=== PATIENT | male | born 1940 | race Caucasian/White ===

== ENCOUNTER 2017-06-11 15:03 | Observation (INO) | payer OTHER ==
--- NOTE | 2017-06-11 15:41 | PDOC ---
History of Present Illness - General History Source: Patient Exam Limitations: No Limitations - History of Present Illness Initial Comments: 06/11/17 16:46 The patient is a 76 year old male with past medical history of atrial fibrillation (on Xarelto) s/p pacemaker, history of [place] (as per angiogram), and hiatal hernia who presents to the ED with complaints of hematuria that began last night. The patient denies any associated pain, dysuria, frequency or urgency. The patient reports history of kidney stones but does not relate his symptoms to the pain he felt with his kidney stones. Additionally, the patient has noticed his abdomen become increasingly distended over the course of 2 weeks , with noted constipation for the past month and recent weight loss over the course of one month. The patient reports having routine colonoscopies which have shown no acute findings in the past.He reports having a persistent dry cough for the past 4 months. Patient states hes seen multiple doctors and had a barium swallow test which was normal. He denies any recent illness, fever, chills, nausea, vomiting, diarrhea, melena, hematochezia, chest pain, or shortness of breath. Allergies: Nexium sensitivity Social: Denies any drug, alcohol, or tobacco use Surgery: Denies any abdominal surgery Urologist: Dr. Aldair Ramirez <Seajl Delcid - Last Filed: 06/11/17 19:39> <Soren Ruiz - Last Filed: 06/11/17 19:53> - General Chief Complaint: Hematuria Stated Complaint: BLOOD IN URINE Time Seen by Provider: 06/11/17 15:08 Past History <Sejal Delcid - Last Filed: 06/11/17 19:39> - Past Medical History Anemia: No Asthma: No Cancer: No Cardiac Disorders: Yes (A-FIB, PT WAS INFORMED HE HAD ," HEART DAMAGE") CVA: No COPD: No CHF: No Dementia: No Diabetes: No GI Disorders: No (Colonoscopy in 11/2011 revealed benign polyps, diverticulosis. S/p polypect) Disorders: No HTN: No (PT DENIES) Hypercholesterolemia: No Kidney Stones: Yes Liver Disease: No Seizures: No Thyroid Disease: Yes - Surgical History Abdominal Surgery: No Appendectomy: No Cardiac Surgery: No Cholecystectomy: No Lung Surgery: No Neurologic Surgery: No Orthopedic Surgery: No - Immunization History Immunization Up to Date: Yes - Suicide/Smoking/Psychosocial Hx Smoking Status: No Smoking History: Never smoked Have you smoked in the past 12 months: No Number of Cigarettes Smoked Daily: 0 Hx Alcohol Use: No Drug/Substance Use Hx: No Substance Use Type: None Hx Substance Use Treatment: No <Soren Ruiz - Last Filed: 06/11/17 19:53> - Past Medical History Allergies/Adverse Reactions: Allergies Allergy/AdvReac Type Severity Reaction Status Date / Time esomeprazole magnesium Allergy Verified 06/11/17 15:20 [From Nexium] Home Medications: Ambulatory Orders Cholecalciferol (Vitamin D3) [Vitamin D3] 2,000 unit PO DAILY 11/19/11 Metoprolol Succinate [Toprol XL -] 50 mg PO DAILY #0 tab.sr.24h 01/16/12 Aspirin [Ecotrin] 81 mg PO DAILY 12/26/15 Atorvastatin Ca [Lipitor] 10 mg PO HS 12/26/15 Rivaroxaban [Xarelto -] 20 mg PO HS 12/26/15 Loratadine [Claritin -] 10 mg PO DAILY 04/10/16 Acetaminophen [Tylenol .Regular Strength -] 650 mg PO Q6H PRN #0 tablet Levothyroxine [Synthroid -] 100 mcg PO DAILY 06/11/17 Valsartan [Diovan] 40 mg PO DAILY 06/11/17 Abd/GI Specific PMHX - Complaint Specific PMHX GERD: No GI Ulcer Disease: No <Soren Ruiz - Last Filed: 06/11/17 19:53> Review of Systems - Review of Systems Able to Perform ROS?: Yes Comments:: 06/11/17 16:47 CONSTITUTIONAL: Present: weight loss Absent: fever, chills, diaphoresis, generalized weakness, malaise, loss of appetite HEENT: Absent: rhinorrhea, nasal congestion, throat pain, throat swelling, difficulty swallowing, mouth swelling, ear pain, eye pain, visual Changes CARDIOVASCULAR: Absent: chest pain, syncope, palpitations, irregular heart rate, lightheadedness , peripheral edema RESPIRATORY: Present: cough Absent: shortness of breath, dyspnea with exertion, orthopnea, wheezing, stridor , hemoptysis GASTROINTESTINAL: Present: abdominal distention Absent: abdominal pain, nausea, vomiting, diarrhea, constipation, melena, hematochezia GENITOURINARY: Present: hematuria Absent: dysuria, frequency, urgency, hesitancy, flank pain, genital pain MUSCULOSKELETAL: Absent: myalgia, arthralgia, joint swelling SKIN: Absent: rash, itching, pallor HEMATOLOGIC/IMMUNOLOGIC: Absent: easy bleeding, easy bruising, lymphadenopathy, frequent infections ENDOCRINE: Absent: unexplained weight gain, unexplained weight loss, heat intolerance, cold intolerance NEUROLOGIC: Absent: headache, focal weakness or paresthesias, dizziness, unsteady gait, seizure, mental status changes, bladder or bowel incontinence PSYCHIATRIC: Absent: anxiety, depression, suicidal or homicidal ideation, hallucinations. <Sejal Delcid - Last Filed: 06/11/17 19:39> *Physical Exam - Vital Signs Last Vital Signs Temp Pulse Resp BP Pulse Ox 97.6 F 80 16 120/64 96 06/11/17 15:04 06/11/17 15:04 06/11/17 15:04 06/11/17 15:04 06/11/17 15:04 - Physical Exam Comments: 06/11/17 16:58 GENERAL: Well developed, well nourished. Awake and alert. No acute distress. HEENT: Normocephalic, atraumatic. PERRLA, EOMI. No conjunctival pallor. Sclera are non- icteric. Oropharynx is clear. NECK: Supple. Full ROM. No JVD. Carotid pulses 2+ and symmetric, without bruits. No thyromegaly. No lymphadenopathy. CARDIOVASCULAR: Regular rate and rhythm. No murmurs, rubs, or gallops. Distal pulses are 2+ and symmetric. PULMONARY: No evidence of respiratory distress. Lungs clear to auscultation bilaterally. No wheezing, rales or rhonchi. ABDOMINAL: Distended abdomen. Soft. Non-tender.No rebound or guarding. No organomegaly. Normoactive bowel sounds. MUSCULOSKELETAL Normal range of motion at all joints. No bony deformities or tenderness. No CVA tenderness. EXTREMITIES: No cyanosis. No clubbing. No edema. No calf tenderness. SKIN: Pale appearing. Warm and dry. Normal capillary refill. No rashes. NEUROLOGICAL: Alert, awake, appropriate. Cranial nerves 2-12 intact. No deficits to light touch and temperature in face, upper extremities and lower extremities. No motor deficits in the in face, upper extremities and lower extremities. Normoreflexic in the upper and lower extremities. Normal speech. Toes are down-going bilaterally. Gait is normal without ataxia. PSYCHIATRIC: Cooperative. Good eye contact. Appropriate mood and affect. <Sejal Delcid - Last Filed: 06/11/17 19:39> ED Treatment Course - LABORATORY CBC & Chemistry Diagram: 06/11/17 16:30 06/11/17 16:30 - ADDITIONAL ORDERS Additional order review: Laboratory Results 06/11/17 15:34 Urine Color Red Urine Appearance Bloody Urine pH 5.5 Ur Specific [place] >= 1.030 H Urine Protein 3+ H D Urine Glucose (UA) Negative Urine Ketones Negative Urine Blood 3+ H Urine Nitrite Negative Urine Bilirubin 1+ H Urine Urobilinogen 0.2 Ur Leukocyte Esterase Negative Urine RBC Many Urine WBC 10-15 Urine Bacteria Few - RADIOLOGY Radiograph Interpretation: 06/11/17 18:36 In comparison to a 2013 CT, study interval development of an approximately 26 x 22 x 8 cm 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 This finding appears to arise from the left capsule ventrality. There appears to be a small fluid componenet within this lesion which may represent subacute or chronic blood. Mild left hydronephrosis is noted secondary to extrinsic indentation from the mass lesion upon proximal ureter. Moderate fluid filled gastric distention possibly secondary to effacement/ compression of the duodenal sweep <Sejal Delcid - Last Filed: 06/11/17 19:39> - LABORATORY CBC & Chemistry Diagram: 06/11/17 16:30 06/11/17 16:30 <Soren Ruiz - Last Filed: 06/11/17 19:53> Medical Decision Making - Medical Decision Making 06/11/17 16:48 76 year old male with past medical history of Afib (on Xarelto) s/p ICD presents with 2 days of gross hematuria with dark red/black urine. Denies any dysuria, flank pain, urgency or frequency. Additionally notes recent 20 lb weight loss over course of 1 month with recent abdominal distention and constipation. Denies any N/V/D. Denies recent travel, recent illness, fever or chills. Will obtain comprehensive lab work up including PTT/INR, CBC with differential, CMP, type and screen. Will obtain abdominal CT. Based on renal function will obtain contrast CT. 06/11/17 18:47 Microblog sent to admitting hospitalist. Awaiting call back. 06/11/17 19:02 Phone call placed to patient's urologist, Dr. Ramirez. Awaiting call back 06/11/17 19:20 Phone call returned by Dr. Solorzano, associate of Dr Ramirez. Call was discussed. 06/11/17 19:39 Phone call returned by Mert Field NP. Case was discussed. <Sejal Delcid - Last Filed: 06/11/17 19:39> *DC/Admit/Observation/Transfer - Attestations Scribe Attestion: 06/11/17 16:48 Documentation prepared by Sejal Delcid, acting as medical chief technician for Soren Ruiz MD. <Sejal Delcid - Last Filed: 06/11/17 19:39> - Discharge Dispostion Admit: Yes <Soren Ruiz - Last Filed: 06/11/17 19:53> Diagnosis at time of Disposition: Gross hematuria - Discharge Dispostion Condition at time of disposition: Stable - Referrals Referrals: Nikolas Ku MD [Primary Care Provider] - - Patient Instructions - Post Discharge Activity
[2017-06-11 16:20] LABS: PH,URINE 5.5 (4.5-8); URINE BILIRUBIN 1+ (NEGATIVE); URINE GLUCOSE (UA) Negative (NEGATIVE); URINE KETONE Negative (NEGATIVE); URINE LEUK ESTERASE Negative (NEGATIVE); URINE NITRITE Negative (NEGATIVE); URINE UROBILINOGEN 0.2 (0.2-1.0)
[2017-06-11 16:21] LABS: URINE APPEARANCE BLOODY; URINE BLOOD 3+ (NEGATIVE); URINE COLOR RED; URINE PROTEIN 3+ (NEGATIVE)
[2017-06-11 16:22] LABS: URINE BACTERIA FEW /hpf (NEGATIVE); URINE RBC MANY /hpf (0-3)
[2017-06-11 16:57] LABS: INR 2.1 (0.82-1.09); PROTHROMBIN TIME (PATIENT) 23.2 SEC (10.2-13.0)
[2017-06-11 16:59] LABS: BASO % 1.6 % (0-2.0); EOS % 1.5 % (0-4.5); HEMATOCRIT 36.9 % (35.4-49); HEMOGLOBIN 12.1 GM/dl (11.7-16.9); LYMPH % 22.8 % (8-40); MCH 28.2 pg (25.7-33.7); MCHC 32.8 g/dl (32.0-35.9); MEAN PLT VOLUME 7.8 fl (7.5-11.1); MONO % 8.8 % (3.8-10.2); NEUT % 65.3 % (42.8-82.8); PLATELET COUNT 588 K/MM3 (134-434); RBC 4.29 M/mm3 (4.00-5.60); RDW 15.1 % (11.9-15.9); WHITE BLOOD COUNT 7.2 K/mm3 (4.0-10.8)
[2017-06-11 17:02] LABS: ALBUMIN 2.7 g/dl (3.5-5.0); ALK PHOS 46 U/L (32-92); ANION GAP 4 (8-16); BLOOD UREA NITROGEN 16 mg/dl (7-18); CALCIUM 8.9 mg/dl (8.4-10.2); CHLORIDE 106 mmol/L (98-107); CO2 28 mmol/L (22-28); GLUCOSE,RANDOM 108 mg/dl (74-106); POTASSIUM 3.7 mmol/L (3.5-5.1); SGOT/AST 19 U/L (10-42); SGPT/ALT 16 U/L (10-40); SODIUM 138 mmol/L (136-145); TOT PROT 6.4 g/dl (6.4-8.3)
[2017-06-11 17:16] LABS: BILIRUBIN,TOTAL 0.2 mg/dl (0.2-1.0); CREATININE 0.7 mg/dl (0.6-1.3)
--- NOTE | 2017-06-11 19:54 | PDOC ---
*Physical Exam - Vital Signs Last Vital Signs Temp Pulse Resp BP Pulse Ox 97.6 F 80 16 120/64 96 06/11/17 15:04 06/11/17 15:04 06/11/17 15:04 06/11/17 15:04 06/11/17 15:04 ED Treatment Course - LABORATORY CBC & Chemistry Diagram: 06/11/17 16:30 06/11/17 16:30 - ADDITIONAL ORDERS Additional order review: Laboratory Results 06/11/17 06/11/17 06/11/17 17:02 16:30 16:30 PT with INR INR Sodium 138 Potassium 3.7 Chloride 106 Carbon Dioxide 28 Anion Gap 4 L BUN 16 D Creatinine 0.7 Creat Clearance w eGFR > 60 Random Glucose 108 H Calcium 8.9 Total Bilirubin 0.2 D AST 19 D ALT 16 D Alkaline Phosphatase 46 Total Protein 6.4 Albumin 2.7 L D Urine Color Urine Appearance Urine pH Ur Specific [place] Urine Protein Urine Glucose (UA) Urine Ketones Urine Blood Urine Nitrite Urine Bilirubin Urine Urobilinogen Ur Leukocyte Esterase Urine RBC Urine WBC Urine Bacteria Blood Type A POSITIVE A POSITIVE Antibody Screen Negative 06/11/17 06/11/17 16:30 15:34 PT with INR 23.2 H INR 2.10 H D Sodium Potassium Chloride Carbon Dioxide Anion Gap BUN Creatinine Creat Clearance w eGFR Random Glucose Calcium Total Bilirubin AST ALT Alkaline Phosphatase Total Protein Albumin Urine Color Red Urine Appearance Bloody Urine pH 5.5 Ur Specific [place] >= 1.030 H Urine Protein 3+ H D Urine Glucose (UA) Negative Urine Ketones Negative Urine Blood 3+ H Urine Nitrite Negative Urine Bilirubin 1+ H Urine Urobilinogen 0.2 Ur Leukocyte Esterase Negative Urine RBC Many Urine WBC 10-15 Urine Bacteria Few Blood Type Antibody Screen 06/11/17 16:30 RBC 4.29 MCV 86.0 MCHC 32.8 RDW 15.1 D MPV 7.8 D Neutrophils % 65.3 Lymphocytes % 22.8 Monocytes % 8.8 Eosinophils % 1.5 Basophils % 1.6 - RADIOLOGY Radiology Studies Ordered: Category Date Time Status ABDOMEN & PELVIS CT W/O CONTR [CT] Stat CT Scan 06/11/17 15:39 Completed ABDOMEN & PELVIS CT WITH CONTR [CT] Stat CT Scan 06/11/17 17:34 Taken *DC/Admit/Observation/Transfer Diagnosis at time of Disposition: Gross hematuria - Discharge Dispostion Condition at time of disposition: Stable Admit: Yes - Referrals - Patient Instructions - Post Discharge Activity
[2017-06-11 21:42] VITALS: BMI 35.0
--- NOTE | 2017-06-11 22:25 | HP ---
CHIEF COMPLAINT: ayan hematuria PCP: Carolee Gaona HISTORY OF PRESENT ILLNESS: This is a 76-year-old male with past medical history of A. fib, CAD, hypothyroidism, hypertension presents to the emergency room today with 2 days of worsening hematuria. Patient states he's noticed his urine was tea-colored on January 08 which slowly progressed to eventually became "black" earlier this evening which prompted him to come to the emergency department. Patient also with complaint of dry nonproductive cough lasting for more than 4 months at present. Patient states he has been evaluated by ENT, GI, pulmonology for his cough without any definitive diagnosis. Approximately one month ago he with his transition from LUCRECIA inhibitor valsartan which is only made the cough worse. He denies any fevers, abdominal pain, chest pain, shortness of breath, dizziness, dysuria, rectal bleeding. 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 Recent Travel: denies PAST MEDICAL HISTORY: see HPI PAST SURGICAL HISTORY: see HPI Social History: Smoking: denies Alcohol: occasional Drugs: denies Family History: mother age 84, [place], unknown type father , age 80s, accident brother , age 50s, hepatitis brother alive with lung CA, smoker, drug abuser brother alive, ETOH sister alive, ETOH, DM, obesity. Allergies esomeprazole magnesium [From Nexium] Allergy (Verified 06/11/17 15:20) HOME MEDICATIONS: Home Medications Medication Instructions Recorded Cholecalciferol (Vitamin D3) 2,000 unit PO DAILY 11/19/11 [Vitamin D3] Metoprolol Succinate [Toprol XL -] 50 mg PO DAILY #0 tab.sr.24h 01/16/12 Aspirin [Ecotrin] 81 mg PO DAILY 12/26/15 Atorvastatin Ca [Lipitor] 10 mg PO HS 12/26/15 Rivaroxaban [Xarelto -] 20 mg PO HS 12/26/15 Loratadine [Claritin -] 10 mg PO DAILY 04/10/16 Acetaminophen [Tylenol .Regular 650 mg PO Q6H PRN #0 tablet 04/11/16 Strength -] Levothyroxine [Synthroid -] 100 mcg PO DAILY 06/11/17 Valsartan [Diovan] 40 mg PO DAILY 06/11/17 REVIEW OF SYSTEMS CONSTITUTIONAL: Absent: fever, chills, diaphoresis, generalized weakness, malaise, loss of appetite, weight change HEENT: Absent: rhinorrhea, nasal congestion, throat pain, throat swelling, difficulty swallowing, mouth swelling, ear pain, eye pain, visual changes CARDIOVASCULAR: Absent: chest pain, syncope, palpitations, irregular heart rate, lightheadedness , peripheral edema RESPIRATORY: Present- cough Absent: shortness of breath, dyspnea with exertion, orthopnea, wheezing, stridor, hemoptysis GASTROINTESTINAL: Absent: abdominal pain, abdominal distension, nausea, vomiting, diarrhea, constipation, melena, hematochezia GENITOURINARY: Present- hematuria Absent: dysuria, frequency, urgency, hesitancy, flank pain, genital pain MUSCULOSKELETAL: Absent: myalgia, arthralgia, joint swelling, back pain, neck pain SKIN: Absent: rash, itching, pallor HEMATOLOGIC/IMMUNOLOGIC: Absent: easy bleeding, easy bruising, lymphadenopathy, frequent infections ENDOCRINE: Absent: unexplained weight gain, unexplained weight loss, heat intolerance, cold intolerance NEUROLOGIC: Absent: headache, focal weakness or paresthesias, dizziness, unsteady gait, seizure, mental status changes, bladder or bowel incontinence PSYCHIATRIC: Absent: anxiety, depression, suicidal or homicidal ideation, hallucinations. PHYSICAL EXAMINATION Vital Signs - 24 hr 06/11/17 15:04 Temperature 97.6 F Pulse Rate 80 Respiratory 16 Rate Blood Pressure 120/64 O2 Sat by Pulse 96 Oximetry (%) GENERAL: Awake, alert, and fully oriented, in no acute distress. HEAD: Normal with no signs of trauma. EYES: Pupils equal, round and reactive to light, extraocular movements intact, sclera anicteric, conjunctiva clear. No lid lag. EARS, NOSE, THROAT: Ears normal, nares patent, oropharynx clear without exudates. Moist mucous membranes. NECK: Normal range of motion, supple without lymphadenopathy, JVD, or masses. LUNGS: Breath sounds equal, clear to auscultation bilaterally. No wheezes, and no crackles. No accessory muscle use. HEART: Irregular rhythm, normal S1 and S2 without murmur, rub or gallop. ABDOMEN: Soft, nontender, not distended, normoactive bowel sounds, no guarding, no rebound. Palpable mass to left middle quadrant. No hepatomegaly or splenomegaly. MUSCULOSKELETAL: Normal range of motion at all joints. No bony deformities or tenderness. No CVA tenderness. UPPER EXTREMITIES: 2+ pulses, warm, well-perfused. No cyanosis. No clubbing. No peripheral edema. LOWER EXTREMITIES: 2+ pulses, warm, well-perfused. No calf tenderness. 2+ peripheral edema. NEUROLOGICAL: Cranial nerves II-XII intact. Normal speech. Normal gait. PSYCHIATRIC: Cooperative. Good eye contact. Appropriate mood and affect. SKIN: Warm, dry, normal turgor, no rashes or lesions noted, normal capillary refill. Laboratory Results - last 24 hr 06/11/17 06/11/17 06/11/17 15:34 16:30 16:30 WBC 7.2 RBC 4.29 Hgb 12.1 D Hct 36.9 D MCV 86.0 MCH 28.2 D MCHC 32.8 RDW 15.1 D Plt Count 588 H D MPV 7.8 D Neutrophils % 65.3 Lymphocytes % 22.8 Monocytes % 8.8 Eosinophils % 1.5 Basophils % 1.6 PT with INR 23.2 H INR 2.10 H D Sodium Potassium Chloride Carbon Dioxide Anion Gap BUN Creatinine Creat Clearance w eGFR Random Glucose Calcium Total Bilirubin AST ALT Alkaline Phosphatase Total Protein Albumin Urine Color Red Urine Appearance Bloody Urine pH 5.5 Ur Specific [place] >= 1.030 H Urine Protein 3+ H D Urine Glucose (UA) Negative Urine Ketones Negative Urine Blood 3+ H Urine Nitrite Negative Urine Bilirubin 1+ H Urine Urobilinogen 0.2 Ur Leukocyte Esterase Negative Urine RBC Many Urine WBC 10-15 Urine Bacteria Few Blood Type Antibody Screen 06/11/17 06/11/17 06/11/17 16:30 16:30 17:02 WBC RBC Hgb Hct MCV MCH MCHC RDW Plt Count MPV Neutrophils % Lymphocytes % Monocytes % Eosinophils % Basophils % PT with INR INR Sodium 138 Potassium 3.7 Chloride 106 Carbon Dioxide 28 Anion Gap 4 L BUN 16 D Creatinine 0.7 Creat Clearance w eGFR > 60 Random Glucose 108 H Calcium 8.9 Total Bilirubin 0.2 D AST 19 D ALT 16 D Alkaline Phosphatase 46 Total Protein 6.4 Albumin 2.7 L D Urine Color Urine Appearance Urine pH Ur Specific [place] Urine Protein Urine Glucose (UA) Urine Ketones Urine Blood Urine Nitrite Urine Bilirubin Urine Urobilinogen Ur Leukocyte Esterase Urine RBC Urine WBC Urine Bacteria Blood Type A POSITIVE A POSITIVE Antibody Screen Negative Imaging CT abdomen and pelvis as read by Dr. 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 ASSESSMENT/PLAN: A: 76-year-old male with history of A. fib, and CAD, renal calculi, CAD, hypertension with 2 days of gross hematuria. P: Hematuria - Hold Xarelto and aspirin - I&O's - Trend CBC - Transfuse for hemoglobin< 7.0 - consult Afib - hold Xarelto - telemetry - Metoprolol Hypothyroidism - synthroid HTN - valsartan F/E/N - replete prn - Renal diet PPX - hold AC / bleeding - OOB Dispo- requires observation of acute medical conditions Visit type - Emergency Visit Emergency Visit: Yes ED Registration Date: 06/11/17 Care time: The patient presented to the Emergency Department on the above date and was hospitalized for further evaluation of their emergent condition. - New Patient This patient is new to me today: Yes Date on this admission: 06/13/17 - Critical Care Critical Care patient: No Hospitalist Screening - Colonoscopy Questionnaire Colonoscopy Questionnaire: Colonoscopy Questionnaire - Patient: 50 - 75 years old and never had a screening colonoscopy: No History of colon or rectal polyps, or CA: No History of IBD, Crohn's disease or UC: No History of abdominal radiation therapy as a child: No - Relative: 1 with colon or rectal CA, or polyps at age 60 or younger: No Colon or rectal CA diagnosed at age 45 or younger: No Multiple relatives with colon or rectal CA: No - Outcome: Screening Result: Negative Screen
[2017-06-11] MEDS ORDERED: ACETAMINOPHEN 325 MG TABLET (FP) PO PRN (22:49)
[2017-06-12] MEDS ORDERED: LEVOTHYROXINE NA 100 MCG TABLET (FP) PO SCH (07:00)
[2017-06-12 07:12] VITALS: PULSE 81
--- NOTE | 2017-06-12 09:46 | EKG ---
Test Reason : Blood Pressure : / mmHG Vent. Rate : 089 BPM Atrial Rate : 214 BPM P-R Int : 000 ms QRS Dur : 156 ms QT Int : 418 ms P-R-T Axes : 000 -69 114 degrees QTc Int : 508 ms ATRIAL FIBRILLATION WITH FREQUENT ventricular-paced complexes LEFT AXIS DEVIATION LEFT BUNDLE BRANCH BLOCK ABNORMAL ECG NO PREVIOUS ECGS AVAILABLE Confirmed by TOM KAUFMAN MD ([id number]) on 06/12/2017 9:46:09 AM Referred By: DR SANDERS Confirmed By:TOM KAUFMAN MD
[2017-06-12] MEDS ORDERED: LORATADINE 10 MG TABLET PO SCH (10:00)
[2017-06-12] MEDS ORDERED: VALSARTAN 40 MG TABLET (FP) PO SCH (10:00)
[2017-06-12] MEDS ORDERED: CHOLECALCIFEROL (VITAMIN D3) 1,000 UNIT TABLET (FP) PO SCH (10:00)
[2017-06-12 10:29] LABS: BASO % 0.6 % (0-2.0); EOS % 1.4 % (0-4.5); HEMATOCRIT 33.8 % (35.4-49); HEMOGLOBIN 11.2 GM/dl (11.7-16.9); INR 1.43 (0.82-1.09); LYMPH % 25.4 % (8-40); MCH 28.8 pg (25.7-33.7); MCHC 33.2 g/dl (32.0-35.9); MEAN CELL VOLUME 86.9 fl (80-96); MEAN PLT VOLUME 8.2 fl (7.5-11.1); MONO % 9.8 % (3.8-10.2); NEUT % 62.8 % (42.8-82.8); PLATELET COUNT 494 K/MM3 (134-434); PROTHROMBIN TIME (PATIENT) 15.9 SEC (10.2-13.0); RBC 3.89 M/mm3 (4.00-5.60); RDW 15.4 % (11.9-15.9); WHITE BLOOD COUNT 6.8 K/mm3 (4.0-10.8)
[2017-06-12 10:40] LABS: ALBUMIN 2.4 g/dl (3.5-5.0); ALK PHOS 42 U/L (32-92); ANION GAP 6 (8-16); BILIRUBIN,TOTAL 0.4 mg/dl (0.2-1.0); BLOOD UREA NITROGEN 12 mg/dl (7-18); CALCIUM 8.6 mg/dl (8.4-10.2); CHLORIDE 107 mmol/L (98-107); CO2 26 mmol/L (22-28); CREATININE 0.6 mg/dl (0.6-1.3); GLUCOSE,RANDOM 123 mg/dl (74-106); POTASSIUM 3.9 mmol/L (3.5-5.1); SGOT/AST 16 U/L (10-42); SGPT/ALT 15 U/L (10-40); SODIUM 139 mmol/L (136-145); TOT PROT 5.9 g/dl (6.4-8.3)
--- NOTE | 2017-06-12 12:01 | PN ---
Physical Exam: SUBJECTIVE: Patient seen and examined, ambulatory at bedside, denies any chest pain or shortness of breath. OBJECTIVE: Patient is a 76 y/o male with a past medical history of afib ( xarelto), CAD, hypothyroidism, and hypertension. patient was admitted from the emergency department for hematuria. Vital Signs Period Temp Pulse Resp BP Sys/Torres Pulse Ox Last 24 Hr 97.6 F-99.2 F 79-81 16-18 120-135/61-69 95-96 GENERAL: The patient is awake, alert, and fully oriented, in no acute distress. HEAD: Normal with no signs of trauma. EYES: PERRL, extraocular movements intact, sclera anicteric, conjunctiva clear. No ptosis. ENT: Ears normal, nares patent, oropharynx clear without exudates, moist mucous membranes. NECK: Trachea midline, full range of motion, supple. LUNGS: Breath sounds equal, clear to auscultation bilaterally, no wheezes, no crackles, no accessory muscle use. HEART: irregular rate and rhythm, S1, S2 without murmur, rub or gallop. ABDOMEN: Soft, palpable mass to the left lower quadrant (nontender), nondistended, normoactive bowel sounds, no guarding, no rebound, no hepatosplenomegaly, no masses. EXTREMITIES: 2+ pulses, warm, well-perfused, trace edema to bilateral lower extremities. NEUROLOGICAL: Cranial nerves II through XII grossly intact. Normal speech, gait not observed. PSYCH: Normal mood, normal affect. SKIN: Warm, dry, normal turgor, no rashes or lesions noted Laboratory Results - last 24 hr 06/11/17 06/11/17 06/11/17 15:34 16:30 16:30 WBC 7.2 RBC 4.29 Hgb 12.1 D Hct 36.9 D MCV 86.0 MCH 28.2 D MCHC 32.8 RDW 15.1 D Plt Count 588 H D MPV 7.8 D Neutrophils % 65.3 Lymphocytes % 22.8 Monocytes % 8.8 Eosinophils % 1.5 Basophils % 1.6 PT with INR 23.2 H INR 2.10 H D Sodium Potassium Chloride Carbon Dioxide Anion Gap BUN Creatinine Creat Clearance w eGFR Random Glucose Calcium Total Bilirubin AST ALT Alkaline Phosphatase Total Protein Albumin Urine Color Red Urine Appearance Bloody Urine pH 5.5 Ur Specific [place] >= 1.030 H Urine Protein 3+ H D Urine Glucose (UA) Negative Urine Ketones Negative Urine Blood 3+ H Urine Nitrite Negative Urine Bilirubin 1+ H Urine Urobilinogen 0.2 Ur Leukocyte Esterase Negative Urine RBC Many Urine WBC 10-15 Urine Bacteria Few Blood Type Antibody Screen 06/11/17 06/11/17 06/11/17 16:30 16:30 17:02 WBC RBC Hgb Hct MCV MCH MCHC RDW Plt Count MPV Neutrophils % Lymphocytes % Monocytes % Eosinophils % Basophils % PT with INR INR Sodium 138 Potassium 3.7 Chloride 106 Carbon Dioxide 28 Anion Gap 4 L BUN 16 D Creatinine 0.7 Creat Clearance w eGFR > 60 Random Glucose 108 H Calcium 8.9 Total Bilirubin 0.2 D AST 19 D ALT 16 D Alkaline Phosphatase 46 Total Protein 6.4 Albumin 2.7 L D Urine Color Urine Appearance Urine pH Ur Specific [place] Urine Protein Urine Glucose (UA) Urine Ketones Urine Blood Urine Nitrite Urine Bilirubin Urine Urobilinogen Ur Leukocyte Esterase Urine RBC Urine WBC Urine Bacteria Blood Type A POSITIVE A POSITIVE Antibody Screen Negative 06/12/17 06/12/17 06/12/17 09:30 09:30 09:30 WBC 6.8 RBC 3.89 L Hgb 11.2 L Hct 33.8 L MCV 86.9 MCH 28.8 MCHC 33.2 RDW 15.4 Plt Count 494 H MPV 8.2 Neutrophils % 62.8 Lymphocytes % 25.4 Monocytes % 9.8 Eosinophils % 1.4 Basophils % 0.6 PT with INR 15.9 H INR 1.43 H D Sodium 139 Potassium 3.9 Chloride 107 Carbon Dioxide 26 Anion Gap 6 L BUN 12 D Creatinine 0.6 Creat Clearance w eGFR > 60 Random Glucose 123 H Calcium 8.6 Total Bilirubin 0.4 D AST 16 ALT 15 Alkaline Phosphatase 42 Total Protein 5.9 L Albumin 2.4 L Urine Color Urine Appearance Urine pH Ur Specific [place] Urine Protein Urine Glucose (UA) Urine Ketones Urine Blood Urine Nitrite Urine Bilirubin Urine Urobilinogen Ur Leukocyte Esterase Urine RBC Urine WBC Urine Bacteria Blood Type Antibody Screen Active Medications Generic Name Dose Route Start Last Admin Trade Name Freq PRN Reason Stop Dose Admin Acetaminophen 650 mg 06/11/17 22:49 06/12/17 09:40 Tylenol - PO 650 mg Q6H PRN Administration FEVER Atorvastatin Calcium 10 mg 06/12/17 22:00 Lipitor - PO HS BENJI Cholecalciferol 2,000 unit 06/12/17 10:00 06/12/17 09:41 Vitamin D3 - PO 2,000 unit DAILY BENJI Administration Levothyroxine Sodium 100 mcg 06/12/17 07:00 06/12/17 06:35 Synthroid - PO 100 mcg DAILY@0700 BENJI Administration Loratadine 10 mg 06/12/17 10:00 06/12/17 09:41 Claritin - PO 10 mg DAILY BENJI Administration Metoprolol Succinate 50 mg 06/12/17 10:00 06/12/17 09:41 Toprol Xl - PO 50 mg DAILY BENJI Administration Valsartan 40 mg 06/12/17 10:00 06/12/17 09:41 Diovan - PO 40 mg DAILY BENJI Administration IMAGING ct abd/pelvis with contrast: 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 ASSESSMENT/PLAN: 1) hematuria - likely secondary from compression of liposarcoma - trend hgb will transfuse if less than 7 - appreciate urology input 2) heme/onc - ct scan of abd reviewed suspicious for a liposarcoma, case discussed with Dr Clifton (oncology) pt will require outpatient biopsy - oncology consulted and following 3) cardiovascular Afib - hold Xarelto, secondary to hematuria - rate controlled, continue toprol, continous telemetry hypertension - b/p at goal continue valsartan 4) endo hypothyroidism - continue synthroid F/E/N - replete prn - Renal diet PPX - hold AC 2/2 bleeding - OOB Dispo- requires observation of acute medical conditions Visit type - Emergency Visit Emergency Visit: Yes ED Registration Date: 06/11/17 Care time: The patient presented to the Emergency Department on the above date and was hospitalized for further evaluation of their emergent condition. - New Patient This patient is new to me today: Yes Date on this admission: 06/12/17 - Critical Care Critical Care patient: No - Discharge Referral Referred to [facility] Med P.C.: No
[2017-06-12 14:46] VITALS: BP 104/66; TEMP 98.9
--- NOTE | 2017-06-12 16:22 | CON.GU ---
Consult Consult Specialty:: Referred by:: Gabriel Reason for Consultation:: hematuria, left renal mass - History of Present Illness Chief Complaint: hematuria. weight loss History of Present Illness: 76 year old male with one month of a 20 lbs. weight loss. He has a distant history of kidney stones last treated in 2012. He came to the ER for gross hematuria. It is somewhat improved since admission. he is able to void. CT reveals a 22cm mass in the left retroperitoneum arising from the left kidney read as suggestive of a liposarcoma. - History Source History Provided By: Patient, Medical Record Limitations to Obtaining History: No Limitations - Past Medical History Renal/: Yes: Renal Calculi - Alcohol/Substance Use Hx Alcohol Use: No - Smoking History Smoking history: Never smoked Have you smoked in the past 12 months: No Aproximately how many cigarettes per day: 0 Home Medications - Allergies Allergies/Adverse Reactions: Allergies Allergy/AdvReac Type Severity Reaction Status Date / Time esomeprazole magnesium Allergy Verified 06/11/17 15:20 [From Nexium] - Home Medications Home Medications: Ambulatory Orders Cholecalciferol (Vitamin D3) [Vitamin D3] 2,000 unit PO DAILY 11/19/11 Metoprolol Succinate [Toprol XL -] 50 mg PO DAILY #0 tab.sr.24h 01/16/12 Aspirin [Ecotrin] 81 mg PO DAILY 12/26/15 Atorvastatin Ca [Lipitor] 10 mg PO HS 12/26/15 Rivaroxaban [Xarelto -] 20 mg PO HS 12/26/15 Loratadine [Claritin -] 10 mg PO DAILY 04/10/16 Acetaminophen [Tylenol .Regular Strength -] 650 mg PO Q6H PRN #0 tablet Levothyroxine [Synthroid -] 100 mcg PO DAILY 06/11/17 Valsartan [Diovan] 40 mg PO DAILY 06/11/17 Review of Systems - Review of Systems Constitutional: reports: Loss of Appetite. denies: Night Sweats Gastrointestinal: reports: Bloating, Constipation, Dysphagia, Indigestion. denies: Abdominal Pain Genitourinary: reports: Hematuria Physical Exam- Vital Signs: Vital Signs Temperature 98.9 F 06/12/17 14:45 Pulse Rate 81 06/12/17 14:45 Respiratory Rate 18 06/12/17 14:45 Blood Pressure 104/66 06/12/17 14:45 O2 Sat by Pulse Oximetry (%) 99 06/12/17 14:45 Constitutional: Yes: No Distress Gastrointestinal: Yes: Palpable Mass Renal/: Yes: Hematuria. No: Bladder Distention, CVA Tenderness - Left, CVA Tenderness - Right Labs: CBC, BMP 06/12/17 09:30 06/12/17 09:30 Imaging - Results Cat Scan: Report Reviewed Problem List - Problems (1) Retroperitoneal mass Assessment/Plan: mass will need percutaneous biopsy. Oncology to arrange. Code(s): R19.00 - INTRA-ABD AND PELVIC SWELLING, MASS AND LUMP, UNSP SITE (2) Hydronephrosis Code(s): N13.30 - UNSPECIFIED HYDRONEPHROSIS (3) Gross hematuria Assessment/Plan: is improving and may be related to mass and elevted INR. Hold blood thinning agents if possible. await biopsy of mass. Code(s): R31.0 - GROSS HEMATURIA
[2017-06-12] MEDS ORDERED: FAMOTIDINE 20 MG TABLET PO SCH (22:00)
[2017-06-12] MEDS ORDERED: ATORVASTATIN CA 10 MG TABLET (FP) PO SCH (22:00)
--- NOTE | 2017-06-15 06:56 | DS ---
Physical Exam: SUBJECTIVE: Patient seen and examined, reports feeling well, ambulatory at bedside, denies any chest pain or shortness of breath, patient is tolerating meals. OBJECTIVE: This is a 76-year-old male with past medical history of A. fib, CAD , hypothyroidism, hypertension presents to the emergency room today with 2 days of worsening hematuria. Patient states he's noticed his urine was tea-colored on January 08 which slowly progressed to eventually became "black" earlier this evening which prompted him to come to the emergency department. Patient also with complaint of dry nonproductive cough lasting for more than 4 months at present. Patient states he has been evaluated by ENT, GI, pulmonology for his cough without any definitive diagnosis. Approximately one month ago he with his transition from LUCRECIA inhibitor valsartan which is only made the cough worse. He denies any fevers, abdominal pain, chest pain, shortness of breath, dizziness , dysuria, rectal bleeding. 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 PHYSICAL EXAM GENERAL: The patient is awake, alert, and fully oriented, in no acute distress. HEAD: Normal with no signs of trauma. EYES: PERRL, extraocular movements intact, sclera anicteric, conjunctiva clear. No ptosis. ENT: Ears normal, nares patent, oropharynx clear without exudates, moist mucous membranes. NECK: Trachea midline, full range of motion, supple. LUNGS: Breath sounds equal, clear to auscultation bilaterally, no wheezes, no crackles, no accessory muscle use. HEART: irregular rate and rhythm, S1, S2 without murmur, rub or gallop. ABDOMEN: Soft, palpable mass to the left lower quadrant (nontender), nondistended, normoactive bowel sounds, no guarding, no rebound, no hepatosplenomegaly, no masses. EXTREMITIES: 2+ pulses, warm, well-perfused, trace edema to bilateral lower extremities. NEUROLOGICAL: Cranial nerves II through XII grossly intact. Normal speech, gait not observed. PSYCH: Normal mood, normal affect. SKIN: Warm, dry, normal turgor, no rashes or lesions noted LABS CBC WBC 6.8 K/mm3 (4.0-10.8) 06/12/17 09:30 RBC 3.89 M/mm3 (4.00-5.60) L 06/12/17 09:30 Hgb 11.2 GM/dl (11.7-16.9) L 06/12/17 09:30 Hct 33.8 % (35.4-49) L 06/12/17 09:30 MCV 86.9 fl (80-96) 06/12/17 09:30 MCH 28.8 pg (25.7-33.7) 06/12/17:30 MCHC 33.2 g/dl (32.0-35.9) 06/12/17 09:30 RDW 15.4 % (11.9-15.9) 06/12/17:30 Plt Count 494 K/MM3 (134-434) H 06/12/17:30 MPV 8.2 fl (7.5-11.1) 06/12/17 09:30 Neutrophils % 62.8 % (42.8-82.8) 06/12/17:30 Lymphocytes % 25.4 % (8-40) 06/12/17:30 Monocytes % 9.8 % (3.8-10.2) 06/12/17 09:30 Eosinophils % 1.4 % (0-4.5) 06/12/17:30 Basophils % 0.6 % (0-2.0) 06/12/17 09:30 CMP Sodium 139 mmol/L (136-145) 06/12/17 09:30 Potassium 3.9 mmol/L (3.5-5.1) 06/12/17:30 Chloride 107 mmol/L (98-107) 06/12/17 09:30 Carbon Dioxide 26 mmol/L (22-28) 06/12/17 09:30 Anion Gap 6 (8-16) L 06/12/17 09:30 BUN 12 mg/dl (7-18) D 06/12/17 09:30 Creatinine 0.6 mg/dl (0.6-1.3) 06/12/17 09:30 Creat Clearance w eGFR > 60 (>60) 06/12/17 09:30 Random Glucose 123 mg/dl (74-106) H 06/12/17 09:30 Calcium 8.6 mg/dl (8.4-10.2) 06/12/17 09:30 Total Bilirubin 0.4 mg/dl (0.2-1.0) D 06/12/17 09:30 AST 16 U/L (10-42) 06/12/17 09:30 ALT 15 U/L (10-40) 06/12/17 09:30 Alkaline Phosphatase 42 U/L (32-92) 06/12/17 09:30 Total Protein 5.9 g/dl (6.4-8.3) L 06/12/17 09:30 Albumin 2.4 g/dl (3.5-5.0) L 06/12/17 09:[address] abd/pelvis with contrast: 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 HOSPITAL COURSE: 1) hematuria - secondary from compression of liposarcoma - hemoglobin stable - urology consulted, Dr Moreno 2) heme/onc - ct scan of abd reviewed suspicious for a liposarcoma, case discussed with Dr Clifton (oncology) pt will require outpatient biopsy - oncology consulted and following 3) Afib - xarelto held for hematuria then restarted - rate controlled, continue toprol, no events on telemetry hypertension - b/p at goal continue valsartan 4) hypothyroidism - continued synthroid PLAN - case discussed with Dr Clifton, hematology advised to follow up with Dr Clifton on 06/15/17 in office Date of Admission:06/11/17 Date of Discharge: 06/15/17 Minutes to complete discharge: 45 Discharge Summary Reason For Visit: GROSS HEMATURIA Condition: Stable - Instructions Diet, Activity, Other Instructions: please follow up with Dr Kenneth Clifton, oncologist on Thursday, at [address] [place] [address] if any new or persistent symptoms develop please return to the emergency department Referrals: Alma Clifton MD [Staff Physician] - 06/15/17 Disposition: HOME - Home Medications Comprehensive Discharge Medication List: Ambulatory Orders Cholecalciferol (Vitamin D3) [Vitamin D3] 2,000 unit PO DAILY 11/19/11 Metoprolol Succinate [Toprol XL -] 50 mg PO DAILY #0 tab.sr.24h 01/16/12 Aspirin [Ecotrin] 81 mg PO DAILY 12/26/15 Atorvastatin Ca [Lipitor] 10 mg PO HS 12/26/15 Loratadine [Claritin -] 10 mg PO DAILY 04/10/16 Acetaminophen [Tylenol .Regular Strength -] 650 mg PO Q6H PRN #0 tablet Levothyroxine [Synthroid -] 100 mcg PO DAILY 06/11/17 Valsartan [Diovan] 40 mg PO DAILY 06/11/17 Famotidine [Pepcid -] 20 mg PO BID tablet 06/12/17 Rivaroxaban [Xarelto -] 20 mg PO DAILY #30 tablet 06/12/17 This patient is new to me today: No Emergency Visit: Yes ED Registration Date: 06/11/17 Care time: The patient presented to the Emergency Department on the above date and was hospitalized for further evaluation of their emergent condition. Critical Care patient: No - Discharge Referral Referred to [facility] Med P.C.: No
== END 2017-06-12 17:15 | disposition home or self-care (01) ==
LOC: FER 15:03 → UNDOADMOB 21:20 → FM/S 21:20 → INTOOBSV 21:20 → FM/S 22:48
PROVIDERS: ADMIT Internal Medicine; ATTEND Nurse Practitioner Family
DX: R31.0 Gross hematuria (principal); I10 Essential (primary) hypertension; I48.91 Unspecified atrial fibrillation; I25.10 Atherosclerotic heart disease of native coronary artery without angina pectoris; E03.9 Hypothyroidism, unspecified; Z79.01 Long term (current) use of anticoagulants; Z87.442 Personal history of urinary calculi; Z95.0 Presence of cardiac pacemaker; R19.00 Intra-abdominal and pelvic swelling, mass and lump, unspecified site; N13.30 Unspecified hydronephrosis
CPT/HCPCS: 36415; 74176-TC; 74177-TC; 80053; 81003; 81015; 85025; 85610; 86850; 86900; 86901; 93005; 99285-25; G0378

== ENCOUNTER 2019-01-03 09:57 | Day surgery (SDC) | payer OTHER ==
[2018-12-29 14:12] VITALS: BMI 35.4
[2019-01-03 11:44] VITALS: BP 118/60
[2019-01-03 11:52] VITALS: PULSE 84; TEMP 97.8
--- NOTE | 2019-01-10 13:43 | PATH ---
Surgical Pathology Report Patient Name: FLY WILSON [facility]. Rec. #: [id number] /Age/Gender: 1940 (Age: 78) / M Account: [id number] Location: [facility] Taken: 01/03/2019 Received: 01/03/2019 Reported: 01/10/2019 Physicians: Tom Miller M.D. Specimen(s) Received A: HOT SNARE POLYPECTOMY CECUM B: BX ILEOCECAL VALVE Clinical History Colon, polyp, diverticulosis Final Diagnosis A. CECUM, POLYP, HOT SNARE, POLYPECTOMY: TUBULAR ADENOMA. B. ILEOCECAL VALVE, BIOPSY: COLONIC MUCOSA SHOWING BENIGN/REACTIVE LYMPHOID AGGREGATE AND SCANT SUBMUCOSAL ADIPOSE TISSUE. Electronically Signed Yolanda Tobias M.D. Gross Description A. Received in formalin, labeled "hot snare polypectomy cecum" are six pieces of ruiz, tissue, ranging from 0.2-0.4 cm in greatest dimension. Entirely submitted in one cassette. B. Received in formalin, labeled "ileocecal valve" is one piece of ruiz, tissue, measuring 0.3 cm in greatest dimension. Entirely submitted in one cassette.
== END 2019-01-03 11:52 | disposition home or self-care (01) ==
LOC: FASU-ENDO 09:57
PROVIDERS: ATTEND Internal Medicine Gastroenterology
PROC: 0DBC8ZX Excision of Ileocecal Valve, Via Natural or Artificial Opening Endoscopic, Diagnostic (ICD-10-PCS; 2019-01-03)
PROC: 0DBH8ZX Excision of Cecum, Via Natural or Artificial Opening Endoscopic, Diagnostic (ICD-10-PCS; principal; 2019-01-03 10:48)
DX: Z86.010 Personal history of colon polyps (principal); D12.0 Benign neoplasm of cecum; K57.30 Diverticulosis of large intestine without perforation or abscess without bleeding; Z98.0 Intestinal bypass and anastomosis status
CPT/HCPCS: 88305-TC

== ENCOUNTER 2021-02-23 02:30 | Emergency (ER) | payer OTHER ==
[2021-02-23 02:44] VITALS: BP 128/54; PULSE 90; TEMP 97.8; BMI 35.2
[2021-02-23] MEDS ORDERED: SODIUM PHOSPHATE/NA BIPHOS 133 ML ENEMA PR ONE (02:54)
[2021-02-23] MEDS ORDERED: MAGNESIUM CITRATE 300 ML BOTTLE PO ONE (02:54)
[2021-02-23] MEDS ORDERED: MAGNESIUM CITRATE 300 ML BOTTLE ONE (02:56)
== END 2021-02-23 04:23 | disposition home or self-care (01) ==
LOC: FER 02:30
DX: K59.00 Constipation, unspecified (principal)
CPT/HCPCS: 99284-25

== ENCOUNTER 2021-05-11 22:41 | Emergency (ER) | payer OTHER ==
[2021-05-11 22:51] VITALS: BP 124/60; PULSE 79; TEMP 98; BMI 35.2
[2021-05-11] MEDS ORDERED: LIDOCAINE HCL 1%, 10 MG/ML (50 mL VIAL) SQ ONE (23:16)
[2021-05-11] MEDS ORDERED: LIDOCAINE HCL 2% (20ML MULTI-DOSE VIAL) ONE (23:17)
[2021-05-11 23:41] LABS: ALBUMIN 3.5 g/dl (3.4-5.0); CALCIUM 9.5 mg/dl (8.5-10); CREATININE 1.2 mg/dl (0.55-1.3); TOT PROT 6.1 g/dl (6.4-8.2)
[2021-05-11] MEDS ORDERED: ACETAMINOPHEN WITH CODEINE 300MG/30MG TABLET PO ONE (23:44)
[2021-05-11 23:45] LABS: INR 1.29 (0.83-1.09); PROTHROMBIN TIME (PATIENT) 14.3 SEC (9.7-13.0)
[2021-05-11 23:47] LABS: BASO % 0.7 % (0-2.0); HEMOGLOBIN 15.7 GM/dL (11.7-16.9); LYMPH % 25.1 % (8-40); MCH 32.4 pg (25.7-33.7); MCHC 33.5 g/dl (32.0-35.9); MEAN CELL VOLUME 96.7 fl (80-96); MEAN PLT VOLUME 9.2 fl (7.5-11.1); MONO % 9.1 % (3.8-10.2); NEUT % 64.1 % (42.8-82.8); PLATELET COUNT 209 10^3/uL (134-434); RBC 4.86 M/mm3 (4.00-5.60); RDW 13.7 % (11.9-15.9); WHITE BLOOD COUNT 9.1 K/mm3 (4.0-10.0)
[2021-05-11] MEDS ORDERED: ACETAMINOPHEN WITH CODEINE 300MG/30MG TABLET ONE (23:47)
== END 2021-05-12 01:14 | disposition home or self-care (01) ==
LOC: FER 22:41
DX: M25.569 Pain in unspecified knee (principal); R22.41 Localized swelling, mass and lump, right lower limb
CPT/HCPCS: 36415; 73562-TC-RT-FY; 80053; 85025; 85610; 85730; 99284-25; C9803; U0003; U0005